=== PATIENT | male | born 1945 ===

== ENCOUNTER → 2022-10-26 | Outpatient (CLI) | payer OTHER | END | disposition home or self-care (01) | LOC: PLD 15:04 → LAB SHORT 15:04 | DX: L57.0 Actinic keratosis (principal); D23.4 Other benign neoplasm of skin of scalp and neck | CPT/HCPCS: 88305 ==

== ENCOUNTER → 2023-01-06 | Outpatient (CLI) | payer OTHER | LOC: LAB 11:19 → LAB SHORT 11:19 | DX: L57.0 Actinic keratosis (principal) | CPT/HCPCS: 88305 ==

== ENCOUNTER 2024-06-05 06:44 | Day surgery (SDC) | payer OTHER ==
[~2024-06-05] VITALS: Ht 182.9 cm; Wt 102.9 kg
[~2024-06-05 06:44] MED LIST: Balanced Salt Epinephrine Irrigation Solution 500 mL IR SCH; Lidocaine HCl/Pf 1% 5 ML VIAL ONE; Lidocaine HCl/Pf 1% 5 ML VIAL XX SCH; Moxifloxacin HCL 0.5 MG/0.1 ML 0.4MLSYR RIGHTEYE SCH; NS 500 ML IV ONE; PHENYLEPHRINE\\TROPICAMIDE\\TETRACAINE OPHTHALMIC DILATING SOLN RIGHTEYE PRN; Povidone-Iodine 450 DROP/30 ML Solution RIGHTEYE SCH
[2024-06-05] MEDS ORDERED: COLESTIPOL HCL1 G1 PO (06:59)
[2024-06-05] MEDS ORDERED: OMEP20ER (07:00)
[2024-06-05] MEDS ORDERED: TAMSULOSIN HCL0.4 M1 PO (07:00)
[2024-06-05] MEDS ORDERED: ALLOPURINOL100 M1 PO (07:00)
[2024-06-05] MEDS ORDERED: FARXIGA10 MG PO (07:00)
[2024-06-05] MEDS ORDERED: DICL75ER PO (07:01)
[2024-06-05] MEDS ORDERED: FAMO20 (07:01)
[2024-06-05] MEDS ORDERED: EUTHYROX25 MC1 PO (07:02)
[2024-06-05] MEDS ORDERED: METFORMIN HCL500 M2 PO (07:02)
[2024-06-05] MEDS ORDERED: CHLO25B PO (07:03)
[2024-06-05] MEDS ORDERED: PROC5 (07:03)
[2024-06-05] MEDS ORDERED: GLIP10ER PO (07:03)
[2024-06-05] MEDS ORDERED: PROP10 PO (07:05)
[2024-06-05] MEDS ORDERED: POTCHL20ER PO (07:06)
[2024-06-05] MEDS ORDERED: ROSUVASTATIN CA20 MG PO (07:06)
--- NOTE | 2024-06-05 07:10 | NUR ---
06/05/24 0710 Jessa Wells AT 0701 PLEDGET AT 0702
[2024-06-05] MEDS ORDERED: NS 500 ML IV ONE (07:12)
[2024-06-05] MEDS ORDERED: FentaNYL Citrate 50 MCG/ML 2 ML Injection ONE (07:28)
[2024-06-05] MEDS ORDERED: Ondansetron HCl 2 MG / ML 2ML Vial ONE ×2 (08:14→08:31)
[2024-06-05 08:28] VITALS: BP 162/84
--- NOTE | 2024-06-05 08:31 | NUR ---
06/05/24 0831 JORJE HARGROVE PT DENIES PAIN. STATES A LITTLE NAUSEATED AND DIZZY. PT DM, BG PRIOR TO SURGERY WAS 125. ADMITS THAT HE USUALLY EATS FIRST THING IN THE MORNING AND IT CAN CAUSE THESE SYMPTOMS. PT IN CHAIR AND IS BURPING AND APPEARS THAT HE MAY VOMIT.
== END 2024-06-05 09:00 | disposition home or self-care (01) ==
LOC: ORSCSDS 06:44
PROVIDERS: Student in an Organized Health Care Education/Training Program
PROC: 08RJ3JZ Replacement of Right Lens with Synthetic Substitute, Percutaneous Approach (ICD-10-PCS; principal; 2024-06-05 08:00)
DX: E11.36 Type 2 diabetes mellitus with diabetic cataract (principal); H25.813 Combined forms of age-related cataract, bilateral; H52.201 Unspecified astigmatism, right eye; I10 Essential (primary) hypertension; E07.9 Disorder of thyroid, unspecified; E66.9 Obesity, unspecified; Z68.30 Body mass index [BMI] 30.0-30.9, adult; Z79.899 Other long term (current) drug therapy; Z79.84 Long term (current) use of oral hypoglycemic drugs
CPT/HCPCS: 82947; J2001; J2405; J3010; J7040; V2632